=== PATIENT | female | born 1960 | race Caucasian/White ===

== ENCOUNTER → 2020-03-17 | Outpatient (CLI) | payer OTHER ==
[~2020-03-17] MED LIST: AMITRIPTYLINE H75 M2 PO; LIPITOR10 MG PO; LISINOPRIL10 MG PO; NORCO 5-325 TA1 EACH PO; RIZATRIPTAN10 MG PO; SINGULAIR 10 MG10 M1 PO; ZOFRAN ODT4 MG PO
== END ==
LOC: LAB 09:19
PROVIDERS: ATTEND Specialist
DX: Z01.812 Encounter for preprocedural laboratory examination (principal); Z20.828 Contact with and (suspected) exposure to other viral communicable diseases

== ENCOUNTER → 2020-03-21 | Outpatient (CLI) | payer OTHER ==
[~2020-03-21] VITALS: Ht 160 cm; Wt 89.4 kg
[~2020-03-21] MED LIST changes: +AMITRIPTYLINE H10 M1 PO; +CALCIUM + VITA1 EACH PO; +CENTRUM SILVER1 EAC5 PO; +LISINOPRIL30 MG PO; +VITAMIN D325 MC3 PO
--- NOTE | 2020-03-24 17:06 | PATH ---
[facility] [address] [place] [address] PATHOLOGY RPT PROCEDURE Name: NORAALBA STAHL Room #: REG [facility] Paul.#: [id number] Admission: 03/21/20 Date of : 62 Discharge: Report #: [id number] Path Case #: [id number] [facility] Accession Number: [id number] . 01 Material submitted: . PART A: colon - POLYP AT ASCENDING COLON. Modifiers: ascending PART B: colon - POLYP AT SIGMOID COLON. Modifiers: sigmoid . 01 Clinical history: . COLON CANCER SCREENING . 02 Diagnosis: A. Polyp, at ascending colon, endoscopic biopsy: - Tubular adenoma. - Negative for high-grade dysplasia. . B. Polyp, at sigmoid colon, endoscopic biopsy: - Hyperplastic polyp. - Negative for dysplasia. (IUV:pit 03/24/2020) QTP 03/24/2020 1245 Local . 02 Electronically signed: . Yuliya U Vadlamani, MD, Pathologist NPI- [id number] . 01 Gross description: . A. Received in formalin labeled "Alba Burden, polyp at ascending colon" are multiple hernandez-brown soft tissue fragments measuring in aggregate 1.0 x 0.4 x 0.1 cm. The specimen is submitted entirely in A1. . B. Received in formalin labeled "Shabana Burdena, polyp at sigmoid colon" is a fragment of hernandez-brown soft tissue measuring 0.5 x 0.3 x 0.1 cm. The specimen is submitted entirely in B1. ([facility]; 03/22/2020) [facility] 03/22/2020 1125 Local . 02 Pathologist provided ICD-10: D12.2, K63.5 . 02 CPT . 520979, 668416 Specimen Comment: A courtesy copy of this report has been sent to [phone] Specimen Comment: Report sent to DR ADAME Performed at: [address], [place] [id number] MD Ferdinand Dow MD Phone: [phone] [place] [address] PATHOLOGY RPT PROCEDURE Name: ALBA BURDEN Room #: REG [facility] Rogel#: [id number] Admission: 03/21/20 Date of : 62 Discharge: Report #: [id number] Path Case #: [id number] Performed at: [address] [id number] MD Yuliya Rowe MD Phone: [phone]
--- NOTE | 2020-03-26 08:38 | P ---
[facility] [place] [address] PROCEDURE REPORT Name: GIA BURDEN Room #: REG [facility]#: [id number] Admission: 03/21/20 Attend Phys: Fede Ely Discharge: Date of : 62 Report #: [id number] THIS REPORT FOR: cc: Paola Holbrook MD,Fede Rodriguez MD, MD ~ CC: Fede Holbrook MD DATE OF SERVICE: 03/21/2020 PROCEDURE PERFORMED: Colonoscopy with biopsies. HISTORY OF PRESENT ILLNESS: The patient is a 60-year-old female who presents today for routine screening colonoscopy. No previous history of colonoscopy. She denies any symptoms. No family history of colon cancer. DESCRIPTION OF PROCEDURE: The risks and benefits of the procedure were explained to the patient, those risks including but not limited to bleeding, perforation and the risk of sedation. She understood these risks and gave informed consent. Sedation was given using propofol per anesthesia. Next, a digital rectal exam was initially performed, which was normal. Next, using a standard Olympus colonoscope, the scope was placed in the patient's anus and advanced under direct vision to the cecum. The overall prep was excellent. The cecum and ileocecal valve were normal in appearance. In the proximal ascending colon, there was a 5 mm sessile polyp. This was removed with cold forceps, otherwise normal. The transverse and descending colon were normal. A few scattered diverticuli were noted in the sigmoid colon, no evidence of inflammation. A 3 mm sessile polyp also noted in the sigmoid colon, also removed with cold forceps. The rectal mucosa was normal. On retroflexion, no abnormalities were noted. The scope was then withdrawn and the procedure terminated. The patient tolerated the procedure well. IMPRESSION: 1. Two small colonic polyps. 2. Mild sigmoid diverticulosis. 3. Otherwise, normal colonoscopy. RECOMMENDATIONS: 1. Await biopsy results. 2. If polyps are hyperplastic, repeat in 10 years; if adenomatous polyps, repeat in [address] [address] PROCEDURE REPORT Name: GIA BURDEN Room #: REG [facility] Rogel#: [id number] Admission: 03/21/20 Attend Phys: Fede Ely Discharge: Date of : 62 Report #: [id number] Thank you for allowing me to participate in her care. <ELECTRONICALLY SIGNED> By: Fede Quan MD 03/26/20 0838 0919 1319 Fede Quan MD /nt
== END | disposition home or self-care (01) ==
LOC: GI 07:27
PROVIDERS: ATTEND Specialist
DX: Z12.11 Encounter for screening for malignant neoplasm of colon (principal); D12.2 Benign neoplasm of ascending colon; K57.30 Diverticulosis of large intestine without perforation or abscess without bleeding; I10 Essential (primary) hypertension; E78.00 Pure hypercholesterolemia, unspecified; G43.909 Migraine, unspecified, not intractable, without status migrainosus; Z98.890 Other specified postprocedural states; Z79.899 Other long term (current) drug therapy; Z90.49 Acquired absence of other specified parts of digestive tract; Z87.891 Personal history of nicotine dependence
CPT/HCPCS: 62110; 62900